=== PATIENT | female | born 1985 | race African-American/Black ===

== ENCOUNTER → 2020-08-28 12:27 | Outpatient (BNVA) | payer OTHER, SELFPAY | PROVIDERS: PCP Nurse Practitioner Family; Visit Provider Surgery | DX: Z01.818 Encounter for other preprocedural examination (principal); E66.01 Morbid (severe) obesity due to excess calories; Z68.42 Body mass index [BMI] 45.0-49.9, adult; R06.02 Shortness of breath | CPT/HCPCS: 99205 ==

== ENCOUNTER 2020-08-29 08:37 | Outpatient (REF) | payer OTHER, SELFPAY ==
--- NOTE | 2020-08-29 10:01 | ECG_ITS ---
Test Reason : SOB Blood Pressure : / mmHG Vent. Rate : 057 BPM Atrial Rate : 057 BPM P-R Int : 172 ms QRS Dur : 098 ms QT Int : 452 ms P-R-T Axes : 048 028 029 degrees QTc Int : 439 ms Sinus bradycardia with sinus arrhythmia Otherwise normal ECG No previous ECGs available Referred By: Gerri Gomez Electronically Signed By:SHAE FUNES MD
--- NOTE | 2020-08-29 10:14 | XR_ITS ---
EXAMINATION: XR CHEST CLINICAL INFORMATION: Shortness of breath COMPARISON: July 17, 2017 TECHNIQUE: 2 views of the chest were obtained. FINDINGS: No significant abnormality is noted involving the heart, lungs, mediastinum, bony thorax or soft tissues. IMPRESSION: No acute disease.
[2020-08-31 16:07] LABS: H Pylori Breath Test DETECTED (NOT DETECTED)
== END 2020-08-29 08:38 | disposition home or self-care (01) ==
LOC: HO.XRAY 08:37
PROVIDERS: Absent Provider Surgery; PCP Nurse Practitioner Family; Visit Provider Physician Assistant
DX: Z01.818 Encounter for other preprocedural examination (principal); R06.02 Shortness of breath; Z11.0 Encounter for screening for intestinal infectious diseases
CPT/HCPCS: 71046; 83013; 93005; 99211

== ENCOUNTER → 2020-09-25 11:32 | Outpatient (BNVA) | payer OTHER, SELFPAY | PROVIDERS: PCP Nurse Practitioner Family; Referring Provider Nurse Practitioner Family; Visit Provider Dietitian, Registered | DX: Z76.89 Persons encountering health services in other specified circumstances (principal) ==

== ENCOUNTER 2020-09-27 08:38 | Outpatient (REF) | payer OTHER, SELFPAY ==
[2020-09-27 09:41] LABS: MANUAL DIFF FLAG NO
[2020-09-27 09:43] LABS: Basophils Percent Auto 0.3 % (0-2); Eosinophils Absolute Auto 0.2 X10*3/uL (0.0-0.4); Eosinophils Percent Auto 2.6 % (0-4); Hematocrit 38.7 % (37-47); Hemoglobin 12.4 g/dl (12.0-16.0); Imm Gran Abs Auto 0.03 X10*3/uL (0.00-0.03); Imm Gran Pct Auto 0.5 % (0.0-0.4); Lymphocytes Absolute Auto 2.5 X10*3/uL (1.2-4.9); Lymphocytes Percent Auto 38.9 % (20-40); Mean Corpuscular Hemoglobin 26.4 pg (27.0-33.0); Mean Corpuscular Volume 82.3 fL (80-98); Monocytes Absolute Auto 0.3 X10*3/uL (0.1-1.2); Monocytes Percent Auto 4.5 % (2-11); Neutrophils Absolute Auto 3.4 X10*3/uL (2.0-8.3); Neutrophils Percent Auto 53.2 % (45-73); Platelet Count 348 X10*3/uL (160-400); Red Cell Distribution Width 12.1 % (11.0-16.0); White Blood Count 6.4 X10*3/uL (4.8-10.8)
[2020-09-27 10:52] LABS: Alanine Aminotransferase 18 U/L (0-31); Albumin Level 4.5 g/dL (3.5-5.0); Alkaline Phosphatase 53 U/L (39-117); Anion Gap 13 (12-20); Aspartate Amino Transferase 14 U/L (5-31); Bilirubin Total 0.7 mg/dL (0.0-1.0); Blood Urea Nitrogen 9 mg/dL (9-16); C Reactive Protein 0.75 mg/dL (< or = 0.50); Calcium 9.3 mg/dL (8.4-10.2); Carbon Dioxide 27 mmol/L (22-29); Chloride 102 mmol/L (96-108); Cholesterol 249 mg/dL; Estimated Glomerular Filt Rate > 60; Glucose Fasting 121 mg/dL (60-99); HDL Cholesterol 37 mg/dL; Iron 62 mcg/dL (30-160); LDL Cholesterol Calculated 185 mg/dl; Percent Iron Saturation 17 % (15-50); Potassium 4.1 mmol/l (3.3-5.1); Sodium 138 mmol/L (135-145); Total Iron Binding Capacity 365 mcg/dL (228-428); Total Protein 7.7 g/dL (6.5-8.0); Triglycerides 137 mg/dL; Unsaturated Iron Binding 303 ug/dL
[2020-09-27 10:56] LABS: Thyroid Stimulating Hormone 1.83 uIU/mL (0.32-4.0); Vitamin D 25-OH Total 16.5 ng/mL (>30)
[2020-09-27 11:02] LABS: Vitamin B12 584 pg/mL (200-900)
[2020-09-28 18:52] LABS: Calcium (PTHI) 9.5 mg/dL (8.6-10.2); PTHI 44 pg/mL (14-64)
[2020-09-30 02:57] LABS: Zinc 89 mcg/dL (60-130)
[2020-10-02 12:22] LABS: Vitamin B1 7 nmol/L (8-30)
[2020-10-05 00:16] LABS: Vitamin A 37 mcg/dL (38-98)
== END 2020-09-27 08:39 | disposition home or self-care (01) ==
LOC: HO.LAB 08:38
PROVIDERS: PCP Nurse Practitioner Family; Visit Provider Surgery
DX: Z01.818 Encounter for other preprocedural examination (principal)
CPT/HCPCS: 36415; 80053; 80061; 82306; 82607; 83540; 83970; 84425; 84443; 84590; 84630; 85025; 86140

== ENCOUNTER → 2020-10-16 13:58 | Outpatient (BNVA) | payer OTHER, SELFPAY | PROVIDERS: PCP Nurse Practitioner Family; Visit Provider Surgery | DX: E66.01 Morbid (severe) obesity due to excess calories (principal); Z68.41 Body mass index [BMI] 40.0-44.9, adult | CPT/HCPCS: 99212 ==

== ENCOUNTER → 2020-10-23 08:22 | Outpatient (BNVA) | payer OTHER, SELFPAY | PROVIDERS: PCP Nurse Practitioner Family; Referring Provider Nurse Practitioner Family; Visit Provider Dietitian, Registered | DX: Z76.89 Persons encountering health services in other specified circumstances (principal) ==

== ENCOUNTER 2020-11-29 11:02 | Outpatient (REF) | payer OTHER, SELFPAY ==
[2020-12-01 13:26] LABS: H Pylori Breath Test NOT DETECTED (NOT DETECTED)
== END 2020-11-29 11:03 | disposition home or self-care (01) ==
LOC: HO.LNP 11:02
PROVIDERS: PCP Nurse Practitioner Family; Referring Provider Nurse Practitioner Family; Visit Provider Surgery
DX: Z01.818 Encounter for other preprocedural examination (principal); R06.02 Shortness of breath; E66.01 Morbid (severe) obesity due to excess calories; Z68.41 Body mass index [BMI] 40.0-44.9, adult
CPT/HCPCS: 83013; 99211; 99212

== ENCOUNTER → 2020-12-27 14:52 | Outpatient (BNVA) | payer OTHER, SELFPAY | PROVIDERS: PCP Nurse Practitioner Family; Visit Provider Surgery | DX: E66.01 Morbid (severe) obesity due to excess calories (principal); Z68.41 Body mass index [BMI] 40.0-44.9, adult | CPT/HCPCS: 99212 ==

== ENCOUNTER → 2021-01-17 15:09 | Outpatient (BNVA) | payer OTHER, SELFPAY | PROVIDERS: PCP Nurse Practitioner Family; Visit Provider Surgery | DX: E66.01 Morbid (severe) obesity due to excess calories (principal); Z68.41 Body mass index [BMI] 40.0-44.9, adult | CPT/HCPCS: 99212 ==

== ENCOUNTER 2021-02-04 14:43 | Outpatient (REF) | payer OTHER, SELFPAY | END 2021-02-04 14:44 | disposition home or self-care (01) | LOC: HO.LAB 14:43 | PROVIDERS: PCP Nurse Practitioner Family; Visit Provider Surgery | DX: Z01.818 Encounter for other preprocedural examination (principal); E66.01 Morbid (severe) obesity due to excess calories; E55.9 Vitamin D deficiency, unspecified; Z79.899 Other long term (current) drug therapy; Z68.41 Body mass index [BMI] 40.0-44.9, adult; Z71.3 Dietary counseling and surveillance | CPT/HCPCS: 36415; 82306; 99212 ==

== ENCOUNTER → 2021-02-11 08:29 | Outpatient (BNVA) | payer OTHER, SELFPAY | PROVIDERS: PCP Nurse Practitioner Family; Visit Provider Surgery | DX: Z01.818 Encounter for other preprocedural examination (principal); E66.01 Morbid (severe) obesity due to excess calories; R06.02 Shortness of breath; Z68.42 Body mass index [BMI] 45.0-49.9, adult | CPT/HCPCS: 99212 ==

== ENCOUNTER 2021-02-13 05:41 | Inpatient (IN) | payer OTHER, SELFPAY ==
[2021-02-08 10:31] VITALS: BMI 41.1
--- NOTE | 2021-02-11 10:07 | ECG_ITS ---
Test Reason : SOB Blood Pressure : / mmHG Vent. Rate : 059 BPM Atrial Rate : 059 BPM P-R Int : 168 ms QRS Dur : 098 ms QT Int : 450 ms P-R-T Axes : 042 029 025 degrees QTc Int : 445 ms Sinus bradycardia Otherwise normal ECG When compared with ECG of 29-AUG-2020 10:06, No significant change was found Referred By: Gerri Gomez Electronically Signed By:MOISES KNIGHT MD
[2021-02-11 10:52] LABS: MANUAL DIFF FLAG NO
[2021-02-11 11:11] LABS: Basophils Percent Auto 0.4 % (0-2); Eosinophils Absolute Auto 0.1 X10*3/uL (0.0-0.4); Eosinophils Percent Auto 1.7 % (0-4); Hematocrit 36.9 % (37-47); Hemoglobin 12.1 g/dl (12.0-16.0); Imm Gran Abs Auto 0.01 X10*3/uL (0.00-0.03); Imm Gran Pct Auto 0.1 % (0.0-0.4); Lymphocytes Absolute Auto 2.4 X10*3/uL (1.2-4.9); Lymphocytes Percent Auto 33.5 % (20-40); Mean Corpuscular HGB Conc 32.8 g/dl (31.0-35.0); Mean Corpuscular Hemoglobin 27.1 pg (27.0-33.0); Mean Corpuscular Volume 82.6 fL (80-98); Mean Platelet Volume 10.8 fL (9.4-12.3); Monocytes Absolute Auto 0.3 X10*3/uL (0.1-1.2); Monocytes Percent Auto 3.9 % (2-11); Neutrophils Absolute Auto 4.3 X10*3/uL (2.0-8.3); Neutrophils Percent Auto 60.4 % (45-73); Platelet Count 324 X10*3/uL (160-400); Red Blood Count 4.47 X10*6/uL (4.20-5.50); Red Cell Distribution Width 12.7 % (11.0-16.0); White Blood Count 7.1 X10*3/uL (4.8-10.8)
[2021-02-11 11:17] LABS: INTERNATIONAL NORM RATIO 1.1 (0.9-1.1); Prothrombin Time 13.1 SEC (10.8-13.0)
[2021-02-11 11:19] LABS: Partial Thromboplastin Time 37.1 SEC (24.1-38.0)
[2021-02-11 11:22] LABS: Albumin Level 4.6 g/dL (3.5-5.0); Anion Gap 11 (12-20); Blood Urea Nitrogen 9 mg/dL (9-16); C Reactive Protein 0.71 mg/dL (< or = 0.50); Calcium 9.4 mg/dL (8.4-10.2); Carbon Dioxide 28 mmol/L (22-29); Chloride 104 mmol/L (96-108); Creatinine Clr Calc Pharmacy 146.3; Estimated Glomerular Filt Rate > 60; Glucose Random 99 mg/dL (60-115); Potassium 4.1 mmol/L (3.3-5.1); Sodium 139 mmol/L (135-145)
[2021-02-11 11:30] LABS: Glucose Urine UA NEG (NEG); Leukocyte Esterase Urine NEG (NEG); Nitrite Urine NEG (NEG); PH 5.5 (5.0-8.0); Specific Gravity - Urine 1.025 (1.005-1.025); Urine Blood TRACE (NEG); Urine Ketones NEG (NEG); Urine Protein NEG (NEG-TRACE)
[2021-02-11 11:42] LABS: Appearance Urine CLEAR; Color Urine YELLOW; UPreg QC Valid YES; Urine Pregnancy NEGATIVE (NEGATIVE)
[2021-02-11 12:44] LABS: RBC Urine 0 /HPF (0); Squamous Epithelial Cell Urine TRACE /LPF; WBC Urine 0 /HPF (0-4)
--- NOTE | 2021-02-12 10:04 | HO.ANESPROP2 ---
Documented by User: Georgie Beckwith 02/12/21 10:06 HPI - Anesthesia Eval Consult details Narrative: 35yo F for Gastrectomy Sleeve PMFSH Active Problems Active Problems: All Active Problems (Updated 02/08/21 @ 10:28 by Estefany Sanford) BMI 45.0-49.9, adult (Acute) Shortness of breath (Acute) Preoperative examination (Acute) Morbid obesity due to excess calories (Acute) Body mass index (BMI) of 40.0 to 44.9 in adult (Acute) Vitamin D deficiency (Acute) Morbid obesity with BMI of 45.0-49.9, adult (Acute) Past Medical History Medical History (Updated 02/13/21 @ 08:16 by Claire Snell) History of thyroid nodule Hx of migraines Morbid obesity with BMI of 45.0-49.9, adult Snoring Vitamin D deficiency Family History Family History Father DM (diabetes mellitus) Vision problems Mother HTN (hypertension) Hypothyroid Depression Arthritis Overweight Brother Back problem Sister History of uterine cancer Daughter Learning disabilities Asthma Son ADHD Surgical History Surgical History History of tooth extraction, class I edentulism Hx of section Hx of tubal ligation S/P thyroidectomy Social History Social History Are you a primary health care consultant to a significant other at home: No Do you presently have visiting nurse or other home services: No Alcohol intake: never Smoking Status: Former smoker Smoking Quit Date: 4 yrs ago Second Hand Smoke Exposure: No Use of substances other than those prescribed or required for medical reasons: No Have you been hit, kicked, punched, or otherwise hurt by someone within the past year? If so, by whom?: No Advance Directives: No Advance Directives Information Provided: No Advance Directives on File: No Recently lost weight without trying: No Meds Allergies Allergy/AdvReac Type Severity Reaction Status Date / Time No Known Allergies Allergy Verified 02/11/21 09:29 [No Known Allergies*] Home Medications Medication Instructions Recorded Confirmed Last Taken Type multivitamin 1 tab PO DAILY 10/16/20 02/11/21 Unknown History acetaminophen 325 mg capsule 325 mg PO QID PRN 12/27/20 02/11/21 Unknown History Exam Exam Date and Time: February 12, 2021 1004 Height,Weight and Vital Signs: Height 5 ft 6 in Weight 115.666 kg Pertinent Lab Results Pertinent Lab Results: Laboratory Tests 02/11/21 02/11/21 02/11/21 10:08 10:08 10:08 WBC 7.1 RBC 4.47 Hgb 12.1 Hct 36.9 L MCV 82.6 MCH 27.1 MCHC 32.8 RDW 12.7 Plt Count 324 MPV 10.8 Immature Gran % (Auto) 0.1 Neut % (Auto) 60.4 Lymph % (Auto) 33.5 Wayne % (Auto) 3.9 Eos % (Auto) 1.7 Baso % (Auto) 0.4 Lymph # (Auto) 2.4 Wayne # (Auto) 0.3 Eos # (Auto) 0.1 Baso # (Auto) 0.0 Abs Immat Gran (auto) 0.01 Absolute Neuts (auto) 4.3 Absolute Nucleated RBC 0.000 Nucleated RBC % (auto) 0.0 PT 13.1 H INR 1.1 APTT 37.1 Sodium Potassium Chloride Carbon Dioxide Anion Gap BUN Creatinine Estim Creat Clear Calc Estimated GFR Random Glucose Calcium C-Reactive Protein Albumin Urine Color YELLOW Urine Appearance CLEAR Urine pH 5.5 Ur Specific Flushing 1.025 Urine Protein NEG Urine Glucose (UA) NEG Urine Ketones NEG Urine Blood TRACE Urine Nitrite NEG Ur Leukocyte Esterase NEG Urine RBC 0 Urine WBC 0 Ur Squamous Epith Cells TRACE Urine Bacteria NONE Urine Test Blood Type Antibody Screen 02/11/21 02/11/21 02/11/21 10:08 10:08 10:20 WBC RBC Hgb Hct MCV MCH MCHC RDW Plt Count MPV Immature Gran % (Auto) Neut % (Auto) Lymph % (Auto) Wayne % (Auto) Eos % (Auto) Baso % (Auto) Lymph # (Auto) Wayne # (Auto) Eos # (Auto) Baso # (Auto) Abs Immat Gran (auto) Absolute Neuts (auto) Absolute Nucleated RBC Nucleated RBC % (auto) PT INR APTT Sodium 139 Potassium 4.1 Chloride 104 Carbon Dioxide 28 Anion Gap 11 L BUN 9 Creatinine 0.70 Estim Creat Clear Calc 146.3 Estimated GFR > 60 Random Glucose 99 Calcium 9.4 C-Reactive Protein 0.71 H Albumin 4.6 Urine Color Urine Appearance Urine pH Ur Specific Flushing Urine Protein Urine Glucose (UA) Urine Ketones Urine Blood Urine Nitrite Ur Leukocyte Esterase Urine RBC Urine WBC Ur Squamous Epith Cells Urine Bacteria Urine Test NEGATIVE Blood Type A Positive Antibody Screen NEGATIVE Narrative Narrative: EKG 02/2021 Vent. Rate : 059 BPM Atrial Rate : 059 BPM P-R Int : 168 ms QRS Dur : 098 ms QT Int : 450 ms P-R-T Axes : 042 029 025 degrees QTc Int : 445 ms Sinus bradycardia Otherwise normal ECG When compared with ECG of 29-AUG-2020 10:06, No significant change was found Assessment and Plan Assessment Anesthesia Assessment: Chart Reviewed Documented by User: Claire Snell 02/13/21 08:20 [facility] Past Medical History Medical History (Updated 02/13/21 @ 08:16 by Claire Snell) History of thyroid nodule Hx of migraines Morbid obesity with BMI of 45.0-49.9, adult Snoring Vitamin D deficiency Family History Family History Father DM (diabetes mellitus) Vision problems Mother HTN (hypertension) Hypothyroid Depression Arthritis Overweight Brother Back problem Sister History of uterine cancer Daughter Learning disabilities Asthma Son ADHD Family history of problems with anesthesia: No Surgical History Surgical History History of tooth extraction, class I edentulism Hx of section Hx of tubal ligation S/P thyroidectomy History of Problems with Anesthesia: No Social History Social History Are you a primary health care consultant to a significant other at home: No Do you presently have visiting nurse or other home services: No Alcohol intake: never Smoking Status: Former smoker Smoking Quit Date: 4 yrs ago Second Hand Smoke Exposure: No Use of substances other than those prescribed or required for medical reasons: No Have you been hit, kicked, punched, or otherwise hurt by someone within the past year? If so, by whom?: No Advance Directives: No Advance Directives Information Provided: No Advance Directives on File: No Recently lost weight without trying: No Meds Allergies Allergy/AdvReac Type Severity Reaction Status Date / Time No Known Allergies Allergy Verified 02/11/21 09:29 [No Known Allergies*] Home Medications Medication Instructions Recorded Confirmed Last Taken Type multivitamin 1 tab PO DAILY 10/16/20 02/11/21 Unknown History acetaminophen 325 mg capsule 325 mg PO QID PRN 12/27/20 02/11/21 Unknown History Exam Height,Weight and Vital Signs: Vital Signs Temp Pulse Resp BP Pulse Ox 02/13/21 06:56 97.4 F 77 16 112/55 L 99 Pertinent Lab Results Pertinent Lab Results: Laboratory Results - last 24 hr 02/13/21 06:33 COVID-19 ([facility]) Negative COVID-19 Clin Com See Note Airway Mallampati Class: III TM Dist: >3cm Neck ROM: Full Loose/Missing/Broken Teeth: Yes (Missing some) Heart: RRR Lungs: CTAB Assessment and Plan Assessment Anesthesia Assessment: Anesthesia Plan Discussed and Chart Reviewed Final Anesthetic Review NPO: Yes ASA Class: III Final Preanesthetic Review: No Changes in Pt Med Stat, Meds/Allgs Chart Reviewed, Consent Obtained/Reviewed and Anes Risks/Benef Reviewed Patient Risk: Intermediate Procedure Risk: Intermediate Assessment/Block/Sedation in SS: Assess/Block/Sedation-SS Anesthetic Plan Anesthetic Plan: GA Disposition: Standard PACU
--- NOTE | 2021-02-12 17:12 | MHC.SHP ---
Pre-Procedural Eval Section B Chief Complaint: Morbid Severe Obesity Allergies: Allergies Allergy/AdvReac Type Severity Reaction Status Date / Time No Known Allergies Allergy Verified 02/11/21 09:29 [No Known Allergies*] Plan I have reviewed the history and physical and performed a pertinent physical examination on my patient. No changes have occurred unless specified.
[2021-02-13] VITALS (12 sets, daily range): BP systolic 112–161; BP diastolic 55–87; PULSE 54–79; RESP 16–20; TEMP 36.1–36.4; O2SAT 90–100
[2021-02-13 07:10] LABS: COVID-19 Test Negative (Negative)
[2021-02-13] MEDS: Lactated Ringers 1,000 ML 100 ML IVCONT (07:13)
--- NOTE | 2021-02-13 10:37 | P.BOP_ITS ---
Brief Operative Note Date of Service: 02/13/21 Pre-op diagnosis: Morbid obesity, BMI Post-op diagnosis: other (Same) Procedure: Laparoscopic sleeve gastrectomy, hiatal hernia repair, Kalyn block, and intraoperative endoscopy Implants: covidien harsh, small clips on distal staple line Surgeon: Gerri Gomez MD Anesthesia: GETA Career Development Engineer: Angelia Xiao Estimated blood loss (mL): 10 Pathology: other (Partial gastrectomy) Condition: stable Disposition: PACU
--- NOTE | 2021-02-13 10:39 | P.OP_ITS ---
Operative Note Operative Note Date of Service: 02/13/21 Narrative: Patient was brought into the operating room and placed on the operating room table in the supine position. General anesthesia was induced. Normal DVT prophylaxis was instituted and the patient received 2 grams of cefotetan preoperatively. The abdomen was then prepped and draped in the normal sterile fashion. A safety time-out was performed. A mixture of 1% lidocaine with epinephrine and 0.25% Marcaine plain was used to anesthetize the planned incision site in the left upper quadrant. A #11 scalpel was used to make a 5 mm left upper quadrant transverse incision through which a veress needle was placed. Three pops were heard going through the fascia. A saline drop test was used to confirm that the veress needle was intraabdominal. An optiview technique was then used to place a 5mm port in the left upper quadrant. A 5 mm 30 degree laproscope was then placed through this port and the abdominal cavity was surveyed and was normal. The patient was placed in reverse Trendelenburg positioning. A louie liver retractor was then placed in the subxyphoid position and it was used to hold up the left lobe of the liver to the abdominal wall. This was secured to the bed using the liver retractor bhagat. A DANIELA block was then performed for pain control on the right side of the abdomen. A 5 mm port was placed in the right upper quadrant near the falciform ligament. A 12 mm port was then placed in the mid epigastrium. One additional 5 mm port was placed in the left upper quadrant just to the left of the placement of the first port. I then performed a DANIELA block on the left side of the abdomen. I then removed the epigastric fat pad; there was a small anterior hiatal hernia noted. I reapproximated the left and right crura with a total of 1 stitch of 2-0 ethibond and a laparoscopic knot pusher. There was no residual hiatal hernia. I then opened up the angle of His. We then gained entry into the lesser sac about 4-5 cm from the pylorus. I had anesthesia place a 34 Belarusian orogastric tube into the distal antrum to use as a sizing tool for gastric pouch size. I divided the short gastric vessels up to the angle of His. We then started the creation of the gastric pouch by firing a 60 mm purple load endostapler up the stomach about 4-5 cm from the pylorus. We completed the creation of the gastric pouch using a total of 4 firings of a 60 mm and 1 firing of 45 mm purple load stapler. We had anesthesia remove the orogastric tube, then we clamped across the distal antrum using a fired 60 mm endostapler. We flattened the patient and then instilled normal saline surrounding the newly created staple line. I then performed an on-table endoscopy. I passed the gastroscopy into the posterior oropharynx and down the esophagus evaluating the esophageal mucosa which was normal. There was no evidence of hiatal hernia. I passed the gastroscope into the gastric pouch and insufflated the gastric pouch. There was healthy pink mucosa and no evidence of active bleeding. There was no evidence of leak on laparoscop y. I desufflated the gastric pouch and removed the endoscope. I removed the endostapler from the abdomen and suctioned the fluid from the left upper quadrant. I then removed the partial gastrectomy specimen through the epigastric 12 mm port site. I reapproximated the 12 mm port using a 0 maxon suture with a laparoscopic suture passer. I instilled local anesthetic into the fascial closure site and tied the suture down at a pressure of 8-10 mm of Hg. There was no residual fascial defect. We removed the liver retractor and the left upper quadrant 5 mm ports under direct visualization. There was no evidence of any active bleeding. I desufflated the abdomen through the last remaining port and removed the laparoscope and 5 mm port. We reapproximated all incisions with a 4-0 monocryl subcuticular stitch. We cleaned and dried the abdominal skin and applied dermabond skin glue. All count were correct at the end of the case. The patient was awake and in stable condition prior to extubation and transfer to the recovery room.
[2021-02-13] MEDS: ondansetron HCL 4 MG/2 ML VIAL IVPUSH ×2 (10:45→18:14)
[2021-02-13] MEDS: Lactated Ringers 1,000 ML 125 ML IVCONT ×2 (12:18→20:23)
[2021-02-13] MEDS: Metoclopramide HCl 10 MG/2 ML VIAL IVPUSH (16:44)
[2021-02-13] MEDS: cefoTEtan disodium 2 GM in 0.9 % Sodium Chloride 50 ML IV (21:16)
[2021-02-13] MEDS: Famotidine/PF 20 MG/2 ML VIAL IVPUSH (21:16)
[2021-02-13] MEDS: 0.9 % Sodium Chloride Flush 3 ML SYRINGE IVFLUSH (21:16)
--- NOTE | 2021-02-13 22:15 | PM.PNGS ---
Subjective Subjective Date of Service: 02/14/21 <Angelia Xiao PA-C - Last Filed: 02/13/21 22:19> 02/14/21 <Gerri Gomez MD - Last Filed: 02/14/21 08:56> Interval history: POD #1: Patient is doing well. Has been ambulating, using the incentive spirometer, and tolerating po liquids. No nausea or abdominal pain. Has some mild incisional pain. <Angelia Xiao PA-C - Last Filed: 02/13/21 22:19> Pod #1 s/p lap sleeve gastrectomy and hiatal hernia repair. Doing well. Tolerating stage 3 diet, ambulating in hallway. Pain well controlled. Patient reports some mild nausea that is intermittent but is improving. She denies vomiting. Vitals and labs reviewed and are within limit for post op day 1. On exam, patient is well appearing, abdomen is soft, nd, mild appropriate incisional tenderness. Incisions c/d/I with dermabond in place. Plan: d/c home today. Follow up with me in 2 weeks. <Gerri Gomez MD - Last Filed: 02/14/21 08:56> Physical Exam Vital Signs: Vital Signs: Last Vital Signs Temp 97.3 F 02/13/21 19:16 Pulse 72 02/13/21 19:16 Resp 20 02/13/21 19:16 BP 150/87 H 02/13/21 19:16 Pulse Ox 98 02/13/21 19:16 Body Mass Index 41.1 <Angelia Xiao PA-C - Last Filed: 02/13/21 22:19> Const: General: cooperative, comfortable, no acute distress, alert and awake <Angelia Xiao PA-C - Last Filed: 02/13/21 22:19> Nutritional Appearance: obese <Angelia Xiao PA-C - Last Filed: 02/13/21 22:19> GI: Inspection: Yes normal to inspection, Yes incision (normal, slight erythema at site of surgical glue, no tenderness/warmth/drai) and Yes obesity <Angelia Xiao PA-C - Last Filed: 02/13/21 22:19> Extrem: Right lower extremity: lower leg Details: no tenderness; no edema <Angelia Xiao PA-C - Last Filed: 02/13/21 22:19> Left lower extremity: lower leg Details: no tenderness; no edema <Angelia Xiao PA-C - Last Filed: 02/13/21 22:19> Progress Note: A&P Assessment and plan (1) Morbid obesity with BMI of 45.0-49.9, adult: Status: Acute <Angelia Xiao PA-C - Last Filed: 02/13/21 22:19> (2) S/P laparoscopic sleeve gastrectomy: Problem details: DOS 02/12/21, Dr. Gomez <Angelia Xioa PA-C - Last Filed: 02/13/21 22:19> Status: Acute <CRISTÓBAL Kwan Last Filed: 02/13/21 22:19> (3) Intestinal malabsorption following gastrectomy: Status: Acute <CRISTÓBAL Kwan Last Filed: 02/13/21 22:19> (4) History of repair of hiatal hernia: Status: Acute <CRISTÓBAL Kwan Last Filed: 02/13/21 22:19> Assessment and Plan: POD #1: Patient is doing well and will be discharged home today. All the discharge instructions were reviewed with the patient and given in writing. Patient will follow up as scheduled in 2 weeks. <Angelia Xiao PA-C - Last Filed: 02/13/21 22:19> Fall Risk Details Current Medications: Current Medications Generic Name Dose Route Start Last Admin Trade Name Francesca PRN Reason Stop Dose Admin Famotidine 20 mg 02/13/21 21:00 02/13/21 21:16 Famotidine/Pf 20 Mg/2 Ml Vial IVPUSH 20 mg BID MARY Administration Hydromorphone HCl 0.25 mg 02/13/21 11:37 Hydromorphone Hcl 0.5 Mg/0.5 Ml Syringe IVPUSH Q4H PRN Pain, Severe (Pain Scale 7-10) Lactated Ringer's 1,000 mls @ 125 mls/hr 02/13/21 11:37 02/13/21 20:23 Lr IVCONT 125 mls/hr .Q8H MARY Administration Acetaminophen 1,000 mg in 100 mls @ 16.7 mls/hr 02/13/21 11:37 02/13/21 19:29 Ofirmev IV 16.7 mls/hr .Q6H MARY Administration Metoclopramide HCl 10 mg 02/13/21 11:37 02/13/21 16:44 Metoclopramide Hcl 10 Mg/2 Ml Vial IVPUSH 10 mg Q6H PRN Administration Nausea Ondansetron HCl 4 mg 02/13/21 11:37 02/13/21 18:14 Ondansetron Hcl 4 Mg/2 Ml Vial IVPUSH 4 mg Q8H MARY Administration Sodium Chloride 3 ml 02/13/21 16:00 02/13/21 21:16 0.9 % Sodium Chloride Flush 3 Ml Syringe IVFLUSH 3 ml QSHIFT MARY Administration <Angelia Xiao PA-C - Last Filed: 02/13/21 22:19> Time Spent With Patient Time: Total time spent is greater than 50% in coordination of care (as documented) at patient's floor/unit and/or counseling patient: <Angelia Xiao PA-C - Last Filed: 02/13/21 22:19> Time with patient: less than 15 minutes <Gerri Gomez MD - Last Filed: 02/14/21 08:56>
--- NOTE | 2021-02-13 22:20 | PM.DS ---
DS: Providers Provider Date of Service: 02/14/21 Date of admission: 02/13/21 05:41 Primary care physician: Elsa Chappell NP DS: Diagnosis Discharge Diagnosis (1) Morbid obesity with BMI of 45.0-49.9, adult: Status: Acute (2) S/P laparoscopic sleeve gastrectomy: Status: Acute Problem details: DOS 02/12/21, Dr. Gomez (3) Intestinal malabsorption following gastrectomy: Status: Acute (4) History of repair of hiatal hernia: Status: Acute DS: Medications Discharge Medications Home Medications: Home Medications Medication Instructions Recorded Confirmed multivitamin 1 tab PO DAILY 10/16/20 02/11/21 Previous Rx's Medication Instructions Recorded acetaminophen 500 mg tablet 1,000 mg PO Q6H PRN #30 tab 02/11/21 docusate sodium 100 mg capsule 100 mg PO BID #30 cap 02/11/21 famotidine 20 mg tablet 20 mg PO DAILY #30 tab 02/11/21 ondansetron HCl 4 mg tablet 4 mg PO Q6H PRN #30 tab 02/11/21 simethicone 80 mg chewable tablet 80 mg PO TID-QID PRN #30 tab 02/11/21 DS: Summary Time Spent with Patient Time attestation: Total time spent providing and/or coordinating discharge services: Discharge coordination time: Greater than 30 minutes Physical Exam Vital Signs: Vital Signs: Last Vital Signs Temp 97.3 F 02/13/21 19:16 Pulse 72 02/13/21 19:16 Resp 20 02/13/21 19:16 BP 150/87 H 02/13/21 19:16 Pulse Ox 98 02/13/21 19:16 Body Mass Index 41.1 DS: Data Data Completed and Pending Pending studies at discharge: Pending at discharge 02/13/21 09:55 Surgical [PTH] Routine Labs on day of discharge: Laboratory Results - last 24 hr 02/13/21 06:33 COVID-19 ([facility]) Negative COVID-19 Clin Com See Note Discharge Plan Discharge Patient Disposition: Home, Self-Care Referrals: Elsa Chappell NP [Primary Care Provider] - Discharge Medications: Continued multivitamin Tablet 1 tab PO DAILY RF: 0 acetaminophen [Tylenol Extra Strength] 500 mg tablet 1,000 mg PO Q6H PRN (Reason: pain) Qty: 30 RF: 1 famotidine [Pepcid AC] 20 mg tablet 20 mg PO DAILY Qty: 30 RF: 1 simethicone [Gas Relief (simethicone)] 80 mg tablet,chewable 80 mg PO TID-QID PRN (Reason: abdominal distention) Qty: 30 RF: 1 ondansetron HCl [Zofran] 4 mg tablet 4 mg PO Q6H PRN (Reason: nausea and vomiting) Qty: 30 RF: 1 docusate sodium [Colace] 100 mg capsule 100 mg PO BID Qty: 30 RF: 1 Discontinued acetaminophen [Tylenol] 325 mg capsule 325 mg PO QID PRN (Reason: Pain) RF: 0 Discharge Orders: Discharge Order (Routine); Ordered 02/14/21 Ordered By: Gerri Gomez Diet: other Activity on Discharge: No heavy lifting Stand Alone Forms: Patient Portal Discharge page Care Plan Goals: weight loss Health Concerns: obesity Plan of Treatment: bariatric surgery Assessment: 1 day status post uneventful laparoscopic sleeve gatrectomy and hiatal hernia repair, discharged home Discharge Date/Time: 02/14/21 10:46
[2021-02-14 03:31] VITALS: BP 146/81; PULSE 70; RESP 20; TEMP 36.4; O2SAT 98
[2021-02-14] MEDS: ondansetron HCL 4 MG/2 ML VIAL IVPUSH (03:31)
[2021-02-14] MEDS: Lactated Ringers 1,000 ML 125 ML IVCONT (04:48)
[2021-02-14 06:03] LABS: MANUAL DIFF FLAG NO
[2021-02-14 06:11] LABS: Basophils Percent Auto 0.1 % (0-2); Hematocrit 34.4 % (37-47); Hemoglobin 11.3 g/dl (12.0-16.0); Imm Gran Abs Auto 0.05 X10*3/uL (0.00-0.03); Imm Gran Pct Auto 0.5 % (0.0-0.4); Lymphocytes Absolute Auto 2.2 X10*3/uL (1.2-4.9); Lymphocytes Percent Auto 21.5 % (20-40); Mean Corpuscular HGB Conc 32.8 g/dl (31.0-35.0); Mean Corpuscular Hemoglobin 27.1 pg (27.0-33.0); Mean Corpuscular Volume 82.5 fL (80-98); Mean Platelet Volume 11.9 fL (9.4-12.3); Monocytes Absolute Auto 0.6 X10*3/uL (0.1-1.2); Monocytes Percent Auto 5.3 % (2-11); Neutrophils Absolute Auto 7.6 X10*3/uL (2.0-8.3); Neutrophils Percent Auto 72.6 % (45-73); Platelet Count 259 X10*3/uL (160-400); Red Blood Count 4.17 X10*6/uL (4.20-5.50); Red Cell Distribution Width 12.6 % (11.0-16.0); White Blood Count 10.4 X10*3/uL (4.8-10.8)
[2021-02-14 06:30] LABS: Anion Gap 11 (12-20); Blood Urea Nitrogen 7 mg/dL (9-16); Carbon Dioxide 27 mmol/L (22-29); Chloride 103 mmol/L (96-108); Creatinine Clr Calc Pharmacy 150.6; Estimated Glomerular Filt Rate > 60; Glucose Random 110 mg/dL (60-115); Potassium 4.2 mmol/L (3.3-5.1); Sodium 137 mmol/L (135-145)
[2021-02-14] MEDS: Famotidine/PF 20 MG/2 ML VIAL IVPUSH (07:15)
[2021-02-14 07:38] VITALS: BP 149/73; PULSE 98; RESP 18; TEMP 37; O2SAT 97
[2021-02-14 08:23] VITALS: O2SAT 95
--- NOTE | 2021-02-14 09:11 | MHC.CM.PN ---
PATIENT LIVES WITH HER CHILDREN AND IS FULLY INDEPENDENT NO DME OR [facility] SERVICES. SHE IS DISCHARGED HOME TODAY WITH NO NEED FOR SERVICES. HER FRIEND WILL BE PROVIDING TRANSPORTATION HOME. RN AWARE OF PLAN.
--- NOTE | 2021-02-14 11:23 | HO.POSTANES ---
Post Anesthesia Evaluation Post Anesthesia Evaluation Vital Signs: Vital Signs Temp Pulse Resp BP Pulse Ox 02/14/21 08:23 95 02/14/21 07:38 98.6 F 98 18 149/73 H 97 02/14/21 03:31 97.5 F 70 20 146/81 H 98 Anesthesia: General Endotracheal-GETA Mental Status: Awake Pain Control: Satisfactory Nausea/Vomiting: None Hydration: Adequate Anesthesia-Related Issues: No Anes. Related Issues
== END 2021-02-14 10:46 | disposition home or self-care (01) | DRG 403 ==
LOC: HO.SSSA 05:42 → HO.S3 11:06
PROVIDERS: Physician Assistant; Admitting Provider Surgery; PCP Nurse Practitioner Family; Visit Provider Surgery
PROC: 0DB64Z3 Excision of Stomach, Percutaneous Endoscopic Approach, Vertical (ICD-10-PCS; CPT 43845; principal; 2021-02-13 08:00)
DX: E66.01 Morbid (severe) obesity due to excess calories (principal); K44.9 Diaphragmatic hernia without obstruction or gangrene; Z20.822 Contact with and (suspected) exposure to COVID-19; Z68.41 Body mass index [BMI] 40.0-44.9, adult; Z79.899 Other long term (current) drug therapy
CPT/HCPCS: 36415; 80048; 81001; 81025; 82040; 85025; 85610; 85730; 86140; 86850; 86900; 87635; 88307; 88342; 93005; 99024; C1776; J0131; J1100; J1170; J2250; J2405; J2550; J2765; J3010

== ENCOUNTER → 2021-02-28 15:04 | Outpatient (BNVA) | payer OTHER, SELFPAY | PROVIDERS: PCP Nurse Practitioner Family; Visit Provider Surgery | DX: E66.01 Morbid (severe) obesity due to excess calories (principal); K29.50 Unspecified chronic gastritis without bleeding; Z68.39 Body mass index [BMI] 39.0-39.9, adult; Z87.891 Personal history of nicotine dependence; Z20.822 Contact with and (suspected) exposure to COVID-19; Z90.3 Acquired absence of stomach [part of]; Z98.84 Bariatric surgery status; Z79.899 Other long term (current) drug therapy | CPT/HCPCS: 99212 ==

== ENCOUNTER → 2021-03-28 14:04 | Outpatient (BNVA) | payer OTHER, SELFPAY | PROVIDERS: PCP Nurse Practitioner Family; Visit Provider Physician Assistant | DX: E66.01 Morbid (severe) obesity due to excess calories (principal); Z68.37 Body mass index [BMI] 37.0-37.9, adult; Z98.84 Bariatric surgery status | CPT/HCPCS: 99212 ==

== ENCOUNTER → 2021-04-18 08:12 | Outpatient (BNVA) | payer OTHER, SELFPAY | PROVIDERS: PCP Nurse Practitioner Family; Visit Provider Dietitian, Registered | DX: E66.01 Morbid (severe) obesity due to excess calories (principal); Z68.42 Body mass index [BMI] 45.0-49.9, adult | CPT/HCPCS: 97803 ==

== ENCOUNTER → 2021-05-24 12:37 | Outpatient (BNVA) | payer OTHER, SELFPAY | PROVIDERS: PCP Nurse Practitioner Family; Visit Provider Physician Assistant | DX: E66.9 Obesity, unspecified (principal); Z98.84 Bariatric surgery status | CPT/HCPCS: 99212 ==

== ENCOUNTER → 2021-08-14 14:05 | Outpatient (BNVA) | payer OTHER, SELFPAY | PROVIDERS: PCP Nurse Practitioner Family; Visit Provider Surgery | DX: Z01.818 Encounter for other preprocedural examination (principal); E66.9 Obesity, unspecified; K91.2 Postsurgical malabsorption, not elsewhere classified; Z90.3 Acquired absence of stomach [part of]; Z98.84 Bariatric surgery status; Z68.33 Body mass index [BMI] 33.0-33.9, adult | CPT/HCPCS: 99212 ==

== ENCOUNTER 2021-09-11 12:30 | Outpatient (REF) | payer OTHER, SELFPAY ==
[2021-09-11 12:54] LABS: MANUAL DIFF FLAG NO
[2021-09-11 12:59] LABS: Basophils Percent Auto 0.5 % (0-2); Eosinophils Absolute Auto 0.1 X10*3/uL (0.0-0.4); Eosinophils Percent Auto 1.7 % (0-4); Hemoglobin 12.1 g/dl (12.0-16.0); Imm Gran Abs Auto 0.01 X10*3/uL (0.00-0.03); Imm Gran Pct Auto 0.2 % (0.0-0.4); Lymphocytes Absolute Auto 2.4 X10*3/uL (1.2-4.9); Lymphocytes Percent Auto 36.2 % (20-40); Mean Corpuscular HGB Conc 32.7 g/dl (31.0-35.0); Mean Corpuscular Hemoglobin 27.4 pg (27.0-33.0); Mean Corpuscular Volume 83.9 fL (80.0-98.0); Mean Platelet Volume 11.8 fL (9.4-12.3); Monocytes Absolute Auto 0.3 X10*3/uL (0.1-1.2); Neutrophils Absolute Auto 3.74 x10*3/uL (2.0-8.3); Neutrophils Percent Auto 56.4 % (45-73); Platelet Count 239 X10*3/uL (160-400); Red Blood Count 4.41 X10*6/uL (4.20-5.50); Red Cell Distribution Width 12.3 % (11.0-16.0); White Blood Count 6.6 X10*3/uL (4.8-10.8)
[2021-09-11 13:25] LABS: Alanine Aminotransferase 9 U/L (0-31); Albumin Level 4.3 g/dL (3.5-5.0); Alkaline Phosphatase 50 U/L (39-117); Anion Gap 11 (12-20); Aspartate Amino Transferase 13 U/L (5-31); Bilirubin Total 0.7 mg/dL (0.0-1.0); Blood Urea Nitrogen 9 mg/dL (9-16); C Reactive Protein 0.13 mg/dL (< or = 0.50); Calcium 9.4 mg/dL (8.4-10.2); Carbon Dioxide 26 mmol/L (22-29); Chloride 106 mmol/L (96-108); Cholesterol 202 mg/dL; Estimated Glomerular Filt Rate > 60; Glucose Fasting 85 mg/dL (60-99); HDL Cholesterol 55 mg/dL; Iron 107 mcg/dL (30-160); LDL Cholesterol Calculated 134 mg/dl; Percent Iron Saturation 35 % (15-50); Potassium 4.4 mmol/L (3.3-5.1); Sodium 139 mmol/L (135-145); Total Iron Binding Capacity 307 mcg/dL (228-428); Triglycerides 66 mg/dL; Unsaturated Iron Binding 200 ug/dL
[2021-09-11 13:48] LABS: Thyroid Stimulating Hormone 0.91 uIU/mL (0.32-4.0); Vitamin D 25-OH Total 25.6 ng/mL (>30)
[2021-09-11 13:59] LABS: Estimated Average Glucose 100 mg/dL; Hemoglobin A1c % 5.1 %
[2021-09-11 14:02] LABS: Vitamin B12 661 pg/mL (200-900)
[2021-09-11 14:18] LABS: Appearance Urine HAZY; Color Urine YELLOW; Glucose Urine UA NEG (NEG); Leukocyte Esterase Urine NEG (NEG); Nitrite Urine NEG (NEG); Urine Blood NEG (NEG); Urine Ketones NEG (NEG); Urine Protein NEG (NEG-TRACE)
[2021-09-15 11:26] LABS: Vitamin B1 16 nmol/L (8-30)
[2021-09-15 15:17] LABS: Zinc 74 mcg/dL (60-130)
[2021-09-16 12:20] LABS: Vitamin A 37 mcg/dL (38-98)
== END 2021-09-11 12:31 | disposition home or self-care (01) ==
LOC: HO.LAB 12:30
PROVIDERS: Visit Provider Surgery
DX: Z01.818 Encounter for other preprocedural examination (principal); K91.2 Postsurgical malabsorption, not elsewhere classified; Z90.3 Acquired absence of stomach [part of]
CPT/HCPCS: 36415; 80053; 80061; 81003; 82306; 82607; 83036; 83540; 84425; 84443; 84590; 84630; 85025; 86140

== ENCOUNTER → 2021-09-13 08:17 | Outpatient (BNVA) | payer OTHER, SELFPAY | PROVIDERS: PCP Nurse Practitioner Family; Visit Provider Dietitian, Registered | DX: E66.9 Obesity, unspecified (principal); Z68.32 Body mass index [BMI] 32.0-32.9, adult | CPT/HCPCS: 97803 ==

== ENCOUNTER → 2021-11-26 15:34 | Outpatient (BNVA) | payer OTHER, SELFPAY | PROVIDERS: PCP Nurse Practitioner Family; Visit Provider Physician Assistant Surgical | DX: E66.9 Obesity, unspecified (principal); Z68.32 Body mass index [BMI] 32.0-32.9, adult | CPT/HCPCS: 99212 ==

== ENCOUNTER → 2022-06-11 12:59 | Outpatient (BNVA) | payer OTHER, SELFPAY | PROVIDERS: PCP Nurse Practitioner Family; Referring Provider Physician Assistant Surgical; Visit Provider Physician Assistant Surgical | DX: E66.9 Obesity, unspecified (principal); Z68.33 Body mass index [BMI] 33.0-33.9, adult; Z71.3 Dietary counseling and surveillance; Z98.84 Bariatric surgery status | CPT/HCPCS: 99212 ==

== ENCOUNTER 2022-06-16 09:45 | Outpatient (REF) | payer OTHER, SELFPAY ==
[2022-06-16 10:01] LABS: MANUAL DIFF FLAG NO
[2022-06-16 10:15] LABS: Basophils Percent Auto 0.5 % (0-2); Eosinophils Absolute Auto 0.2 X10*3/uL (0.0-0.4); Eosinophils Percent Auto 2.3 % (0-4); Hematocrit 35.5 % (37.0-47.0); Hemoglobin 11.7 g/dl (12.0-16.0); Imm Gran Abs Auto 0.01 X10*3/uL (0.00-0.03); Imm Gran Pct Auto 0.2 % (0.0-0.4); Lymphocytes Absolute Auto 1.9 X10*3/uL (1.2-4.9); Mean Corpuscular Hemoglobin 27.3 pg (27.0-33.0); Mean Corpuscular Volume 82.8 fL (80.0-98.0); Mean Platelet Volume 11.1 fL (9.4-12.3); Monocytes Absolute Auto 0.3 X10*3/uL (0.1-1.2); Monocytes Percent Auto 4.5 % (2-11); Neutrophils Percent Auto 62.5 % (45-73); Platelet Count 253 X10*3/uL (160-400); Red Blood Count 4.29 X10*6/uL (4.20-5.50); Red Cell Distribution Width 12.5 % (11.0-16.0); White Blood Count 6.5 X10*3/uL (4.8-10.8)
[2022-06-16 10:23] LABS: Estimated Average Glucose 100 mg/dL; Hemoglobin A1c % 5.1 %
[2022-06-16 10:56] LABS: Alanine Aminotransferase 9 U/L (0-31); Albumin Level 4.3 g/dL (3.5-5.0); Alkaline Phosphatase 45 U/L (39-117); Anion Gap 11 (12-20); Aspartate Amino Transferase 13 U/L (5-31); Bilirubin Total 0.7 mg/dL (0.0-1.0); Blood Urea Nitrogen 14 mg/dL (9-16); C Reactive Protein 0.14 mg/dL (< or = 0.50); Calcium 9.1 mg/dL (8.4-10.2); Carbon Dioxide 27 mmol/L (22-29); Chloride 103 mmol/L (96-108); Cholesterol 190 mg/dL; Estimated Glomerular Filt Rate > 60; Glucose Random 87 mg/dL (60-115); HDL Cholesterol 56 mg/dL; Iron 63 mcg/dL (30-160); LDL Cholesterol Calculated 122 mg/dl; Percent Iron Saturation 17 % (15-50); Potassium 4.4 mmol/L (3.3-5.1); Sodium 137 mmol/L (135-145); Total Iron Binding Capacity 363 mcg/dL (228-428); Triglycerides 60 mg/dL; Unsaturated Iron Binding 300 ug/dL
[2022-06-16 11:24] LABS: Ferritin 12 ng/mL (10-122); TSH reflex Free T4 1.44 uIU/mL (0.32-4.0); Vitamin D 25-OH Total 23.3 ng/mL (>30)
[2022-06-16 11:25] LABS: Folate 9.3 ng/mL (> or = 4.0); Vitamin B12 886 pg/mL (200-900)
[2022-06-16 11:55] LABS: Insulin 8 uU/mL (2-29)
[2022-06-17 12:48] LABS: Calcium (PTHI) 9.1 mg/dL (8.6-10.2); PTHI 37 pg/mL (16-77)
[2022-06-19 01:26] LABS: Zinc 73 mcg/dL (60-130)
[2022-06-20 23:51] LABS: Vitamin A 34 mcg/dL (38-98)
[2022-06-22 12:06] LABS: Vitamin B1 14 nmol/L (8-30)
== END 2022-06-16 09:46 | disposition home or self-care (01) ==
LOC: HO.LAB 09:45
PROVIDERS: PCP Nurse Practitioner Family; Visit Provider Physician Assistant Surgical
DX: Z98.84 Bariatric surgery status (principal)
CPT/HCPCS: 36415; 80053; 80061; 82306; 82607; 82728; 82746; 83036; 83525; 83540; 83970; 84425; 84443; 84590; 84630; 85025; 86140

== ENCOUNTER → 2022-09-03 15:33 | Outpatient (BNVA) | payer OTHER, SELFPAY | PROVIDERS: PCP Nurse Practitioner Family; Visit Provider Physician Assistant Surgical | DX: E66.9 Obesity, unspecified (principal); Z68.32 Body mass index [BMI] 32.0-32.9, adult; Z98.84 Bariatric surgery status | CPT/HCPCS: 99212 ==

== ENCOUNTER 2022-09-22 08:23 | Outpatient (REF) | payer OTHER, SELFPAY ==
--- NOTE | ~2022-09-22 | US_ITS ---
EXAMINATION: US ABDOMEN LIMITED CLINICAL INFORMATION: Unspecified abdominal pain. COMPARISON: None TECHNIQUE: Real-time imaging of the right upper quadrant abdominal viscera. FINDINGS: PANCREAS: Visualized portions unremarkable. LIVER: Unremarkable. GALLBLADDER: Tiny mural based focus along the posterior wall measures 0.5 cm. No mural thickening or pericholecystic fluid. COMMON BILE DUCT: Normal in caliber measuring 0.3 cm in diameter. RIGHT KIDNEY: 12.5 cm. No hydronephrosis or nephrolithiasis. Doppler showed no abnormal vascular flow. FREE FLUID: None. US/US abdomen limited IMPRESSION: Tiny gallbladder polyp versus adherent stone without other significant abnormality. This can be monitored for change with a right upper quadrant ultrasound in one year.
== END 2022-09-22 08:24 | disposition home or self-care (01) ==
LOC: HO.US 08:23
PROVIDERS: Visit Provider Physician Assistant Surgical
DX: R10.9 Unspecified abdominal pain (principal)
CPT/HCPCS: 76705